=== PATIENT | female | born 1995 | race Caucasian/White ===

== ENCOUNTER → 2016-07-25 | Outpatient (CLI) | payer BC ==
[~2016-07-25] MED LIST: HSCO125 PO; NITR100C3 PO; PHEN100T26 PO
--- OUTSIDE RECORDS SUMMARY | 2016-07-25 16:54 | XMS REPORT | Continuity of Care Document ---
Author Author [facility] Organization [facility] Address Unknown Phone Unavailable Care Team Providers Care Wood Box Maker Name Role Phone PCP Unavailable Source Comments Some departments are not documenting in the electronic medical record. If you do not see the information that you expected, contact Release of Information in the Health Information Management department at [phone] for further assistance in locating additional records.[facility] Active Allergies and Adverse Reactions No Known [...] Taken Blood Pressure 123/72 04/30/2012 1:18 PM CLOTH SPONGER Pulse 86 04/30/2012 1:18 PM CLOTH SPONGER Temperature 36.8 C (98.2 F) 04/30/2012 1:18 PM CLOTH SPONGER Respiratory Rate 18 04/30/2012 1:18 PM CLOTH SPONGER Height 1.613 m (5' 3.5") 04/30/2012 1:18 PM CLOTH SPONGER Weight 88.905 kg (196 lb) 04/30/2012 1:18 PM CLOTH SPONGER Body Mass Index 34.17 04/30/2012 1:18 PM CLOTH SPONGER Oxygen Saturation - - Plan of Care Health Maintenance Due Date Last Done Comments Physical (Comprehensive) 2001 Exam Hpv Vaccines (#1) 2005 Pertussis Vaccine 2005 Tetanus Vaccine 2011 Cervical Cancer Screening 2015 Influenza Vaccine 02/14/2016 Results from Last 3 Months Not on file
== END ==
LOC: LAB 16:51
PROVIDERS: ATTEND Emergency Medicine
DX: R50.9 Fever, unspecified (principal); D69.6 Thrombocytopenia, unspecified; R41.82 Altered mental status, unspecified
CPT/HCPCS: 87798

== ENCOUNTER → 2016-07-25 | Outpatient (CLI) | payer BC ==
--- OUTSIDE RECORDS SUMMARY | 2016-07-25 15:08 | XMS REPORT | Continuity of Care Document ---
Author Author [facility] Organization [facility] Address Unknown Phone Unavailable Care Team Providers Care Hospitality Internship Name Role Phone PCP Unavailable Source Comments Some departments are not documenting in the electronic medical record. If you do not see the information that you expected, contact Release of Information in the Health Information Management department at [phone] for further assistance in locating additional records.[facility] Active Allergies and Adverse Reactions No Known Allergies Current Medications Prescription Sig. Disp. Refills Start End Date Status Date cyclobenzaprine Take 10 mg by mouth as Active (FLEXERIL) 10 mg tablet Needed. IBUPROFEN (ADVIL PO) Take 200 mg by mouth as Active Needed. Active Problems Not on file Social History Tobacco Use Types Packs/Day Years Used Date Never Smoker Last Filed Vital Signs Vital Sign Reading Time Taken Blood Pressure 123/72 04/30/2012 1:18 PM BROADCAST JOURNALIST Pulse 86 04/30/2012 1:18 PM BROADCAST JOURNALIST Temperature 36.8 C (98.2 F) 04/30/2012 1:18 PM BROADCAST JOURNALIST Respiratory Rate 18 04/30/2012 1:18 PM BROADCAST JOURNALIST Height 1.613 m (5' 3.5") 04/30/2012 1:18 PM BROADCAST JOURNALIST Weight 88.905 kg (196 lb) 04/30/2012 1:18 PM BROADCAST JOURNALIST Body Mass Index 34.17 04/30/2012 1:18 PM BROADCAST JOURNALIST Oxygen Saturation - - Plan of Care Health Maintenance Due Date Last Done Comments Physical (Comprehensive) 2001 Exam Hpv Vaccines (#1) 2005 Pertussis Vaccine 2005 Tetanus Vaccine 2011 Cervical Cancer Screening 2015 Influenza Vaccine 02/14/2016 Results from Last 3 Months Not on file
[2016-07-25 15:28] LABS: BASOPHILS # (AUTO) 0.1 10^3/uL (0.0-0.1); BASOPHILS % (AUTO) 1 % (0-10); EOSINOPHILS # (AUTO) 1.4 10^3/uL (0.0-0.3); EOSINOPHILS % (AUTO) 15 % (0-10); LYMPHOCYTES # (AUTO) 2.7 X 10^3 (1.0-4.0); LYMPHOCYTES % (AUTO) 31 % (12-44); MEAN CORPUSCULAR HEMOGLOBIN 29 PG (25-34); MEAN CORPUSCULAR HGB CONC 33 G/DL (32-36); MEAN CORPUSCULAR VOLUME 89 FL (80-99); MEAN PLATELET VOLUME 9.6 FL (7.4-10.4); MONOCYTES # (AUTO) 0.7 X 10^3 (0.0-1.0); MONOCYTES % (AUTO) 8 % (0-12); NEUTROPHILS # (AUTO) 4.1 X 10^3 (1.8-7.8); NEUTROPHILS % (AUTO) 46 % (42-75); PLATELET COUNT 271 10^3/uL (130-400); RED BLOOD COUNT 4.76 10^6/uL (4.35-5.85); RED CELL DISTRIBUTION WIDTH 12.4 % (10.0-14.5); RETICULOCYTE % 1.66 % (0.50-2.40); WHITE BLOOD COUNT 8.9 10^3/uL (4.3-11.0)
[2016-07-25 15:29] LABS: PATH WILL NEED TO REVIEW SMEAR PATH TO REVIEW
[2016-07-25 16:01] LABS: BAND NEUTROPHILS 0 %; BASOPHILS % (MANUAL) 0 %; EOSINOPHILS % (MANUAL) 17 %; LYMPHOCYTES % (MANUAL) 37 %; NEUTROPHILS % (MANUAL) 41 %
[2016-07-25 16:02] LABS: REACTIVE LYMPHOCYTES 2 %
--- NOTE | 2016-07-25 16:18 | Diagnostic Imaging Report ---
PROCEDURE: MR imaging of the brain without contrast. TECHNIQUE: Multiplanar, multisequence MR imaging of the brain was performed without contrast. INDICATION: Migraines. Photophobia. Neck pain. COMPARISON: None. FINDINGS: There are a couple of punctate nonspecific T2 hyperintensities in the subcortical right frontal lobe. No other abnormal intracranial signal, restricted water diffusion, or enhancement. Normal morphology including the major midline structures, cerebellopontine angle, and posterior fossa. No hydrocephalus or extra-axial fluid collections. Normal intracranial flow voids. The orbits and paranasal sinuses are negative. Bone marrow signal is unremarkable. IMPRESSION: 1. There are a couple of punctate nonspecific T2 hyperintensities in the right frontal lobe. These are of doubtful clinical significance and can be seen in migraines. 2. Remainder negative. Dictated by: Dictated on workstation # [id number]
[2016-07-28 16:56] LABS: IGG MUMPS ANTIBODY 3.12 (0.00-0.89)
[2016-07-28 16:57] LABS: IGM MUMPS ANTIBODY <1:10 (<1:10)
== END ==
LOC: RAD 15:04
PROVIDERS: ATTEND Nurse Practitioner Family
DX: R50.9 Fever, unspecified (principal); R51 Headache; D69.6 Thrombocytopenia, unspecified; H54.7 Unspecified visual loss
CPT/HCPCS: 36415; 70551; 85007; 85027; 85045; 86735

== ENCOUNTER → 2016-07-27 | Outpatient (CLI) | payer BC ==
--- OUTSIDE RECORDS SUMMARY | 2016-07-27 14:32 | XMS REPORT | Continuity of Care Document ---
Author Author [facility] Organization [facility] Address Unknown Phone Unavailable Care Team Providers Care Cricket Coach Name Role Phone PCP Unavailable Source Comments Some departments are not documenting in the electronic medical record. If you do not see the information that you expected, contact Release of Information in the Health Information Management department at [phone] for further assistance in locating additional records.[facility] Active Allergies and Adverse Reactions No Known [...] Taken Blood Pressure 123/72 04/30/2012 1:18 PM DRIER AND PULVERIZER TENDER Pulse 86 04/30/2012 1:18 PM DRIER AND PULVERIZER TENDER Temperature 36.8 C (98.2 F) 04/30/2012 1:18 PM DRIER AND PULVERIZER TENDER Respiratory Rate 18 04/30/2012 1:18 PM DRIER AND PULVERIZER TENDER Height 1.613 m (5' 3.5") 04/30/2012 1:18 PM DRIER AND PULVERIZER TENDER Weight 88.905 kg (196 lb) 04/30/2012 1:18 PM DRIER AND PULVERIZER TENDER Body Mass Index 34.17 04/30/2012 1:18 PM DRIER AND PULVERIZER TENDER Oxygen Saturation - - Plan of Care Health Maintenance Due Date Last Done Comments Physical (Comprehensive) 2001 Exam Hpv Vaccines (#1) 2005 Pertussis Vaccine 2005 Tetanus Vaccine 2011 Cervical Cancer Screening 2015 Influenza Vaccine 02/14/2016 Results from Last 3 Months Not on file
[2016-07-27 14:51] LABS: MEAN PLATELET VOLUME 9.7 FL (7.4-10.4); RED BLOOD COUNT 4.67 10^6/uL (4.35-5.85); RED CELL DISTRIBUTION WIDTH 12.3 % (10.0-14.5); WHITE BLOOD COUNT 6.6 10^3/uL (4.3-11.0)
[2016-07-27 15:14] LABS: ALANINE AMINOTRANSFERASE 51 U/L (0-55); AMYLASE 53 U/L (25-125); ANION GAP 11 MMOL/L (5-14); ASPARTATE AMINO TRANSFERASE 22 U/L (5-34); BILIRUBIN,TOTAL 0.3 MG/DL (0.1-1.0); BLOOD UREA NITROGEN 11 MG/DL (7-18); BUN/CREATININE RATIO 15; CALCIUM 9.1 MG/DL (8.5-10.1); CARBON DIOXIDE 21 MMOL/L (21-32); CHLORIDE 111 MMOL/L (98-107); CREATININE SERUM 0.75 MG/DL (0.60-1.30); GFR ESTIMATED > 60; GLUCOSE 95 MG/DL (70-105); LACTATE DEHYDROGENASE 190 U/L (125-220); LIPASE 18 U/L (8-78); SODIUM 143 MMOL/L (135-145); TOTAL PROTEIN 6.8 G/DL (6.4-8.2)
--- NOTE | 2016-07-27 15:31 | Diagnostic Imaging Report ---
EXAMINATION: Abdomen sonogram dated 07/27/2016. TECHNIQUE: Multiple real-time grayscale images were obtained over the abdomen in various projections. INDICATION: Abdomen pain. FINDINGS: The liver is somewhat heterogeneous in appearance, perhaps due to areas of fatty infiltration. No measurable masses are seen. There is no intrahepatic biliary dilatation. Common bile duct was not demonstrated per the lead sprinkler. Gallbladder wall does not appear thickened. No stones or sludge seen in the gallbladder. No pericholecystic fluid is seen. Pancreas is not well seen due to overlying bowel gas. The spleen is unremarkable. Visualized portions of the aorta and IVC are also unremarkable, although much of the vessels are not seen due to overlying bowel gas. The right kidney is 10.9 cm in greatest dimension and the left is 9.7 cm. No acute process is seen in either kidney. There is no ascites. IMPRESSION: 1. Heterogeneity of the liver likely due to areas of fatty infiltration. 2. Remaining visualized structures demonstrate no evidence for acute abnormality. Some structures not well seen due to overlying bowel gas. Dictated by: Dictated on workstation # [id number]
[2016-07-27 19:48] LABS: BASOPHILS # (AUTO) 0.1 10^3/uL (0.0-0.1); BASOPHILS % (AUTO) 1 % (0-10); EOSINOPHILS # (AUTO) 1.1 10^3/uL (0.0-0.3); EOSINOPHILS % (AUTO) 16 % (0-10); LYMPHOCYTES # (AUTO) 2.3 X 10^3 (1.0-4.0); LYMPHOCYTES % (AUTO) 35 % (12-44); MEAN CORPUSCULAR HGB CONC 33 G/DL (32-36); MONOCYTES # (AUTO) 0.6 X 10^3 (0.0-1.0); MONOCYTES % (AUTO) 9 % (0-12); NEUTROPHILS # (AUTO) 2.7 X 10^3 (1.8-7.8); NEUTROPHILS % (AUTO) 40 % (42-75)
[2016-07-27 19:50] LABS: MEAN CORPUSCULAR HEMOGLOBIN 30 PG (25-34); MEAN CORPUSCULAR VOLUME 89 FL (80-99); MEAN PLATELET VOLUME 9.7 FL (7.4-10.4); PLATELET COUNT 258 10^3/uL (130-400); RED BLOOD COUNT 4.67 10^6/uL (4.35-5.85); RED CELL DISTRIBUTION WIDTH 12.3 % (10.0-14.5); WHITE BLOOD COUNT 6.6 10^3/uL (4.3-11.0)
[2016-07-27 19:52] LABS: BAND NEUTROPHILS 0 %; BASOPHILS % (MANUAL) 2 %; EOSINOPHILS % (MANUAL) 12 %; LYMPHOCYTES % (MANUAL) 36 %; NEUTROPHILS % (MANUAL) 35 %; REACTIVE LYMPHOCYTES 5 %
--- NOTE | 2016-07-28 11:28 | Physician Query-Final Dx ---
FRANK ROMEO 07/28/16 1128: Clinic Account Progress/Dx Physician Query: Please specify the location of the patients abd pain (ie, ruq, luq, ect....) thank you Date of Service Jul 27, 2016 at 14:29 THU MORAN DO 08/01/16 0800: Clinic Account Progress/Dx DIAGNOSIS: Diagnosis 1. Location of pain is RUQ. FRANK ROMEO Jul 28, 2016 11:28 THU MORAN DO Aug 01, 2016 08:00
== END ==
LOC: LAB 14:29
PROVIDERS: ATTEND Internal Medicine
DX: R10.11 Right upper quadrant pain (principal); R50.9 Fever, unspecified
CPT/HCPCS: 36415; 76700; 80053; 82150; 83615; 83690; 85007; 85027; 86308

== ENCOUNTER → 2019-08-11 | Outpatient (CLI) | payer BC ==
--- NOTE | 2019-08-11 08:17 | Diagnostic Imaging Report ---
PROCEDURE: Ultrasound abdomen complete. TECHNIQUE: Multiple real-time grayscale images were obtained of the abdomen in various projections. INDICATION: Abdominal pain. Epigastric pain with nausea and vomiting. FINDINGS: There is hepatic steatosis. The gallbladder is absent. The bile ducts are not dilated. Pancreas is obscured by bowel gas. The spleen is normal. The aorta and IVC are normal. Both kidneys are approximately 10 cm in length. There is what appears to be a prominent column of Corey in the mid right kidney. No calculus or hydronephrosis is seen. There is no ascites. IMPRESSION: Hepatic steatosis. No acute abnormality is seen. Dictated by: Dictated on workstation # [id number]
== END ==
LOC: RAD 07:19
PROVIDERS: ATTEND Nurse Practitioner
DX: K76.0 Fatty (change of) liver, not elsewhere classified (principal); R19.7 Diarrhea, unspecified; Z90.49 Acquired absence of other specified parts of digestive tract
CPT/HCPCS: 76700

== ENCOUNTER → 2019-08-18 | Outpatient (CLI) | payer BC | END | disposition home or self-care (01) | LOC: PREOP 09:05 | PROVIDERS: ATTEND Surgery | DX: Z01.818 Encounter for other preprocedural examination (principal) ==